=== PATIENT | male | born 1950 | race Caucasian/White ===

== ENCOUNTER 2020-09-15 18:51 | Emergency (ER) | payer MEDICARE, OTHER ==
[~2020-09-15] VITALS: Ht 190.5 cm; Wt 96.2 kg
[~2020-09-15 18:51] MED LIST: ALEVE220 MG PO; AMOXICILLIN875 MG PO; APAP500 PO; FLEXERIL PO; HYDROCODON-ACE1 EACH PO; IBUPROFEN 800800 M1 PO; KEFLEX125 MG/5 M; LODINE XL400 MG PO; MAGNESIUM; NABUMETONE 750750 M1 PO; NAPROSYN500 MG PO; NYQUIL D COLD295 ML; OXYCODONE HCL15 MG PO; OXYCODONE PO; TYLENOL325 MG PO
[2020-09-15] MEDS ORDERED: LISINOPRIL10 MG (18:59)
[2020-09-15] MEDS ORDERED: LIPITOR10 MG (18:59)
[2020-09-15 19:32] LABS: ABSOLUTE BASOPHILS 0.2 thou/uL (0.0-0.2); ABSOLUTE EOSINOPHILS 0.9 thou/uL (0.0-0.7); ABSOLUTE LYMPHOCYTES 4.7 thou/uL (0.8-5.3); ABSOLUTE MONOCYTES 1.1 thou/uL (0.0-1.2); BASOPHILS 1.2 %; EOSINOPHILS 7.2 %; HEMATOCRIT 40.5 % (42.0-52.0); HEMOGLOBIN 13.7 gm/dL (14.0-18.0); LYMPHOCYTES 36.5 %; MCH 30.6 pg (26.0-34.0); MCHC 33.9 g/dL (28.0-37.0); MCV 90.1 fL (80.0-100.0); MONOCYTES 8.2 %; MPV 7.4 fl. (7.2-11.1); NUCLEATED RBCS 0 /100WBC; PLATELET COUNT* 392 thou/uL (150-400); POLYS 46.9 %; RDW-CV 12.9 % (10.5-14.5); WBC 12.8 thou/uL (4.0-11.0)
[2020-09-15 19:38] LABS: CALCIUM 8.7 mg/dL (8.5-10.1); CREATININE 1.4 mg/dL (0.6-1.3); POTASSIUM 4.2 mmol/L (3.5-5.1)
[2020-09-15 19:44] LABS: PROTIME 10.3 Seconds (9.20-11.50)
[2020-09-15 19:48] LABS: ALBUMIN 3.6 g/dL (3.4-5.0); MAGNESIUM 2.1 mg/dL (1.8-2.4); TOTAL BILIRUBIN 0.1 mg/dL (<0.1-1.0); TOTAL PROTEIN 6.9 g/dL (6.4-8.2)
[2020-09-15 22:15] VITALS: BP 115/62
--- NOTE | 2020-09-16 08:55 | EKG ---
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
== END 2020-09-15 22:16 | disposition home or self-care (01) ==
LOC: M.ERS 18:51
PROVIDERS: Emergency Medicine
DX: R07.89 Other chest pain (principal); Z20.822 Contact with and (suspected) exposure to COVID-19; E78.00 Pure hypercholesterolemia, unspecified; Z88.1 Allergy status to other antibiotic agents; Z79.899 Other long term (current) drug therapy

== ENCOUNTER → 2021-09-05 | Outpatient (CLI) | payer OTHER ==
[~2021-09-05] MED LIST changes: +LIPITOR10 MG; +LISINOPRIL10 MG
== END ==
LOC: M.CT 08:00
PROVIDERS: ATTEND Nurse Practitioner Family
DX: Z13.6 Encounter for screening for cardiovascular disorders (principal); I25.10 Atherosclerotic heart disease of native coronary artery without angina pectoris